=== PATIENT | female | born 1980 | race Caucasian/White ===

== ENCOUNTER 2017-04-18 02:48 | Inpatient (IN) | payer BC ==
[2017-04-18] VITALS (16 sets, daily range): BP systolic 92–115; BP diastolic 45–67
[~2017-04-18] VITALS: Ht 180.3 cm; Wt 75.0 kg
[2017-04-18] MEDS ORDERED: normal saline 1000ML IV soln IVB ONE (03:05)
[2017-04-18] MEDS ORDERED: ondansetron/PF 4mg/2ml inj IV ONE (03:05)
[2017-04-18] MEDS ORDERED: morphine 2 MG/ML inj. syringe IV ONE ×2 (03:05→03:15)
[2017-04-18 03:33] LABS: BASOPHILS % (AUTO) 0.1 % (0-1); EOSINOPHILS # (AUTO) 0.1 X10'3 (0-0.9); EOSINOPHILS % (AUTO) 0.7 % (0-6); HEMATOCRIT 40.8 % (35.0-45.0); HEMOGLOBIN 14.3 g/dl (12.0-16.0); LYMPHOCYTES # (AUTO) 1.1 X10'3 (1.1-4.8); MEAN CORPUSCULAR HEMOGLOBIN 31.3 PG (27.0-31.0); MEAN CORPUSCULAR HGB CONC 35.1 % (33.0-36.5); MEAN CORPUSCULAR VOLUME 89.1 FL (78-98); MONOCYTES # (AUTO) 0.3 X10'3 (0-0.9); MONOCYTES % (AUTO) 1.5 % (2-12); NEUTROPHILS # (AUTO) 16.1 X10'3 (1.8-7.7); NEUTROPHILS % (AUTO) 91.7 % (42-75); PLATELET COUNT 180 X10'3 (140-440); RED BLOOD COUNT 4.58 X10'6 (4.20-5.60); RED CELL DISTRIBUTION WIDTH 12.6 % (11.5-14.5); WHITE BLOOD COUNT 17.6 X10'3 (4.5-11.0)
[2017-04-18 03:49] LABS: ALANINE AMINOTRANSFERASE 24 U/L (12-78); ALBUMIN/GLOBULIN RATIO 1.3 (1.1-1.5); ALKALINE PHOSPHATASE 61 IU/L (46-116); ANION GAP 13 (8-16); ASPARTATE AMINO TRANSFERASE 11 U/L (10-37); BILIRUBIN,TOTAL 0.7 MG/DL (0.1-1.0); BLOOD UREA NITROGEN 10 MG/DL (7-18); BUN/CREATININE RATIO 12.5 (6.6-38.0); CALCIUM 8.6 MG/DL (8.5-10.1); CHLORIDE 103 MMOL/L (99-107); GLUCOSE 142 MG/DL (70-104); LIPASE 127 U/L (73-393); POTASSIUM 3.4 MMOL/L (3.5-5.1); SODIUM 141 MMOL/L (135-145); TOTAL CARBON DIOXIDE 24.9 MMOL/L (24-32); TOTAL PROTEIN 7.2 G/DL (6.4-8.2); eGFR 82 ML/MIN
[2017-04-18 04:11] LABS: CLARITY,URINE CLEAR (Clear); COLOR,URINE YELLOW (Yellow); GLUCOSE, URINE NEGATIVE (Neg); KETONES,URINE TRACE mg/dl (Neg); LEUKOCYTE ESTERASE ,URINE NEGATIVE (Neg); NITRITES, URINE NEGATIVE (Neg); OCCULT BLOOD,URINE NEGATIVE (Neg); PH,URINE 6.5 (4.8-8.0); PROTEIN,URINE NEGATIVE (Neg); UA COLLECTION TYPE CLN CATCH MIDSTREAM; UROBILINOGEN,URINE 0.2 E.U/dL (0.2-1.0)
[2017-04-18] MEDS ORDERED: piperacillin/tazo 3.375gm/50ml 50 ML IV ONE (04:30)
[2017-04-18] MEDS ORDERED: HYDROmorphone 2mg/ml vial IV PRN (05:00)
[2017-04-18] MEDS ORDERED: magnesium 2GM in 50ml NS 50 ML IV PRN (05:05)
[2017-04-18] MEDS ORDERED: magnesium hydroxide 30ml (MOM) UD suspension PO PRN (05:05)
[2017-04-18] MEDS ORDERED: mag hydrox/Alum hydrox/simeth 30ml oral suspension PO PRN (05:05)
[2017-04-18] MEDS ORDERED: potassium Cl 20 mEq SR tablet PO PRN (05:05)
[2017-04-18] MEDS ORDERED: potassium Cl 40MEQ/NS 500ml 500 ML IV PRN ×2 (05:05)
[2017-04-18] MEDS ORDERED: acetaminophen 325mg tablet PO PRN (05:05)
[2017-04-18] MEDS ORDERED: magnesium Cl slow-release 64mg tablet PO PRN (05:05)
[2017-04-18] MEDS ORDERED: HYDROmorphone 1 mg/ml syringe IV PRN ×2 (05:05)
[2017-04-18] MEDS ORDERED: ondansetron/PF 4mg/2ml inj IV PRN ×3 (05:05→12:25)
[2017-04-18] MEDS ORDERED: magnesium 4gm in 100ml NS 100 ML IV PRN (05:05)
[2017-04-18] MEDS: potassium Cl 20mEq in NS 1,000 ML IV SCH ×2 (06:04→13:22)
[2017-04-18] MEDS: potassium Cl 20 mEq SR tablet PO PRN ×2 (08:07→14:10)
[2017-04-18] MEDS: K and/or MAG REPLACEMENT MC SCH (08:09)
[2017-04-18] MEDS: piperacillin/tazo 4.5gm/100ml 100 ML IV SCH ×2 (08:23→16:37)
[2017-04-18] MEDS ORDERED: HYDROmorphone inj. 0.5 MG/0.5 ML DISP.SYRIN IV PRN ×2 (09:23)
[2017-04-18] MEDS ORDERED: HYDROmorphone inj. 0.5 MG/0.5 ML DISP.SYRIN ONE (09:24)
[2017-04-18] MEDS: HYDROmorphone inj. 0.5 MG/0.5 ML DISP.SYRIN IV PRN ×4 (09:27→23:07)
[2017-04-18] MEDS ORDERED: BUPIVAcaine/PF 2.5 mg/ml (0.25%) 30ml vial ONE (10:36)
[2017-04-18] MEDS ORDERED: ringers solution, lacted 1,000 ML IV SCH (10:49)
[2017-04-18] MEDS ORDERED: proCHLORperazine 10 MG/2 ml inj IV PRN (10:50)
[2017-04-18] MEDS ORDERED: morphine 2 MG/ML inj. syringe IV PRN ×2 (10:50)
[2017-04-18] MEDS ORDERED: meperidine/PF 50mg/ml syringe IV PRN ×2 (10:50)
[2017-04-18] MEDS ORDERED: sevoflurane 250ml liquid IH ONE (10:52)
[2017-04-18] MEDS ORDERED: fentaNYL/PF 50MCG/1 ML 2ML syringe ONE ×2 (10:55→10:56)
[2017-04-18] MEDS ORDERED: propofol inj 20 ML IV ONE (10:56)
[2017-04-18] MEDS ORDERED: rocuronium 10mg/ml inj IV ONE (10:56)
[2017-04-18] MEDS ORDERED: midazolam 2 mg/2 ml injection ONE (10:56)
[2017-04-18] MEDS ORDERED: NO HOME MEDS (11:23)
[2017-04-18] MEDS ORDERED: neostigmine methylsulfate 1 MG/ML 10ml vial ONE (12:01)
[2017-04-18] MEDS ORDERED: glycopyrrolate 0.2mg/ml inj ONE (12:02)
[2017-04-18] MEDS ORDERED: metoprolol tartrate 1mg/ml inj IV ONE (12:05)
[2017-04-18] MEDS ORDERED: HYDROcodone/acetaminophen 10/325mg tab PO PRN (12:25)
[2017-04-18] MEDS: meperidine/PF 50mg/ml syringe IV PRN ×2 (12:41→12:56)
[2017-04-18] MEDS: lactobacillus rhamnosus 10,000 MMU CELLS/CAPSULE PO SCH (16:37)
[2017-04-19] VITALS: BP 114/75
[2017-04-19] MEDS: potassium Cl 20mEq in NS 1,000 ML IV SCH ×2 (00:21→11:02)
[2017-04-19] MEDS: piperacillin/tazo 4.5gm/100ml 100 ML IV SCH ×2 (00:21→07:45)
[2017-04-19] MEDS: HYDROmorphone inj. 0.5 MG/0.5 ML DISP.SYRIN IV PRN ×2 (04:20→09:08)
[2017-04-19 05:30] LABS: BASOPHILS % (AUTO) 0.2 % (0-1); EOSINOPHILS % (AUTO) 0.1 % (0-6); HEMATOCRIT 30.1 % (35.0-45.0); HEMOGLOBIN 10.7 g/dl (12.0-16.0); LYMPHOCYTES % (AUTO) 17.5 % (21-51); MEAN CORPUSCULAR HEMOGLOBIN 31.2 PG (27.0-31.0); MEAN CORPUSCULAR HGB CONC 35.4 % (33.0-36.5); MEAN CORPUSCULAR VOLUME 88.1 FL (78-98); MONOCYTES # (AUTO) 0.6 X10'3 (0-0.9); NEUTROPHILS # (AUTO) 8.7 X10'3 (1.8-7.7); NEUTROPHILS % (AUTO) 77.2 % (42-75); PLATELET COUNT 124 X10'3 (140-440); RED BLOOD COUNT 3.42 X10'6 (4.20-5.60); WHITE BLOOD COUNT 11.3 X10'3 (4.5-11.0)
[2017-04-19 06:20] LABS: ALBUMIN 2.7 G/DL (3.4-5.0); ANION GAP 6 (8-16); BLOOD UREA NITROGEN 6 MG/DL (7-18); BUN/CREATININE RATIO 9.4 (6.6-38.0); CHLORIDE 108 MMOL/L (99-107); CREATININE 0.64 MG/DL (0.40-0.90); GLUCOSE 102 MG/DL (70-104); MAGNESIUM 1.8 MG/DL (1.5-2.4); POTASSIUM 3.7 MMOL/L (3.5-5.1); SODIUM 141 MMOL/L (135-145); eGFR > 90 ML/MIN
[2017-04-19] MEDS: lactobacillus rhamnosus 10,000 MMU CELLS/CAPSULE PO SCH (07:45)
[2017-04-19] MEDS: K and/or MAG REPLACEMENT MC SCH (08:00)
[2017-04-19 08:19] VITALS: BP 108/68
[2017-04-19 11:00] VITALS: BP 112/71
[2017-04-19] MEDS ORDERED: HYDR-3965 PO (13:38)
== END 2017-04-19 14:15 | disposition home or self-care (01) | DRG 336 ==
LOC: ER 02:49 → ED HOLD 05:02 → SUR 3N 07:11
PROVIDERS: ADMIT Internal Medicine; ATTEND Family Medicine
PROC: 0DNU4ZZ Release Omentum, Percutaneous Endoscopic Approach (ICD-10-PCS; 2017-04-18)
PROC: 0DTJ4ZZ Resection of Appendix, Percutaneous Endoscopic Approach (ICD-10-PCS; principal; 2017-04-18 10:52)
DX: K35.80 Unspecified acute appendicitis (principal); E87.2 Acidosis; K66.0 Peritoneal adhesions (postprocedural) (postinfection); E87.6 Hypokalemia; Z88.6 Allergy status to analgesic agent; Z79.899 Other long term (current) drug therapy; Z90.710 Acquired absence of both cervix and uterus
CPT/HCPCS: 96361; 96374; 96375; 99285; Z7506; 36415; 74176; 80048; 80053; 81003; 83605; 83690; 83735; 85025; 87040; 87070; A4315; A4353; A6212; A6251; A7000; J1170; J2175; J2250; J2270; J2405; J2543; J2704; J2710; J3010; J3490; J7030; J7040; J7120